=== PATIENT | male | born 1940 | race Caucasian/White ===

== ENCOUNTER → 2021-02-01 | Outpatient (CLI) | payer MEDICARE ==
[~2021-02-01] MED LIST: CELEBREX200 MG PO; IOPAMIDOL 370 MG/ML 200 ML INFUS..BTL INJ ONE; METOPROLOL TARTRATE 25 MG TAB ONE; METOPROLOL TARTRATE INJ 1 MG/ML VIAL ONE; NITROGLYCERIN 0.4 MG SUBL ONE; PRAVASTATIN SOD20 MG PO; SODIUM CHLORIDE 0.9% 100 ML ONE; TERAZOSIN HCL10 MG PO
== END ==
LOC: CT 07:55
PROVIDERS: ATTEND Internal Medicine Cardiovascular Disease
DX: R07.9 Chest pain, unspecified (principal); I50.9 Heart failure, unspecified
CPT/HCPCS: 36415; 75574; 82565; 84520; J7050; Q9967

== ENCOUNTER → 2021-03-03 | Day surgery (SDC) | payer MEDICARE ==
[2021-02-28 08:28] LABS: BASOPHILS % 0.7 % (0.0-1.0); EOSINOPHILS # (AUTO) 0.2 (0.0-0.4); EOSINOPHILS % 2.5 % (0.0-6.0); HEMATOCRIT 41.8 % (38.2-49.6); HEMOGLOBIN 13.5 g/dL (14.0-18.0); LYMPHOCYTES # (AUTO) 1.7 (1.0-3.2); LYMPHOCYTES % 28.3 % (18.0-39.1); MEAN CORPUSCULAR HGB CONC 32.3 g/dL (31-35); MEAN CORPUSCULAR VOLUME 95.9 fL (81-99); MONOCYTES # (AUTO) 0.5 (0.2-0.8); NEUTROPHILS # (AUTO) 3.7 (2.1-6.9); NEUTROPHILS % 60.2 % (38.7-80.0); PLATELET COUNT 230 x10e3/uL (140-360); RED BLOOD COUNT 4.36 x10e6/uL (4.3-5.7)
[2021-02-28 08:46] LABS: INR 1.91; PROTHROMBIN TIME 23.4 seconds (11.9-14.5)
[2021-02-28 08:55] LABS: ALBUMIN 4.1 g/dL (3.5-5.0); ALBUMIN/GLOBULIN RATIO 1.5 (0.8-2.0); ANION GAP 14.5 mmol/L (8-16); CALCIUM 9.3 mg/dL (8.4-10.2); CREATININE, SERUM 1.06 mg/dL (0.72-1.25); POTASSIUM 4.5 mmol/L (3.5-5.1)
[2021-03-03] VITALS (8 sets, daily range): BP systolic 111–138; BP diastolic 71–91
[~2021-03-03] VITALS: Ht 193 cm; Wt 92.5 kg
[~2021-03-03] MED LIST changes: +FENTANYL CITRATE/PF 100MCG/2 ML INJ ONE; +HEPARIN SOD (PORCINE) 1000 UNIT/ML 30ML ONE; +HEPARIN SOD/SOD CHLORIDE 2,000 ML ONE; +LIDOCAINE HCL 2% LOCAL 20 ML VIAL ONE; +LISINOPRIL5 MG PO; +METOPROLOL SUCC25 MG PO; -METOPROLOL TARTRATE 25 MG TAB ONE; -METOPROLOL TARTRATE INJ 1 MG/ML VIAL ONE; +MIDAZOLAM HCL 2 MG/2 ML VIAL ONE; -NITROGLYCERIN 0.4 MG SUBL ONE; +NITROGLYCERIN/D5W 200 MCG/ML 250 ML ONE; +PRAVASTATIN SOD10 MG PO; -SODIUM CHLORIDE 0.9% 100 ML ONE; +SODIUM CHLORIDE 0.9% 1000ML 1,000 ML ONE; +VERAPAMIL HCL 2.5 MG/ML 2 ML VIAL ONE; +XARELTO20 MG PO
== END | disposition home or self-care (01) ==
LOC: CATH LAB 06:31
PROVIDERS: ATTEND Internal Medicine Cardiovascular Disease
DX: I25.10 Atherosclerotic heart disease of native coronary artery without angina pectoris (principal); I11.0 Hypertensive heart disease with heart failure; I50.22 Chronic systolic (congestive) heart failure; I48.91 Unspecified atrial fibrillation; E78.5 Hyperlipidemia, unspecified; Z01.812 Encounter for preprocedural laboratory examination; Z20.822 Contact with and (suspected) exposure to COVID-19; Z79.02 Long term (current) use of antithrombotics/antiplatelets; Z79.899 Other long term (current) drug therapy
CPT/HCPCS: 36415; 76937; 80053; 85025; 85610; 93458; C1769; C1887; J1644; J2001; J2250; J3010; J7030; Q9967; U0002; 99152; 99153